=== PATIENT | female | born 1985 | race Caucasian/White ===

== ENCOUNTER 2018-11-22 10:12 | Emergency (ER) | payer SELFPAY ==
[~2018-11-22] VITALS: Ht 162.6 cm; Wt 59.0 kg
[2018-11-22 10:21] VITALS: BP 178/108
[2018-11-22] MEDS ORDERED: IBUPROFEN 600 MG TAB PO ONE (10:30)
[2018-11-22] MEDS ORDERED: ACETAMINOPHEN 500 MG TAB PO ONE (10:30)
== END 2018-11-22 11:28 | disposition left against medical advice (07) ==
LOC: ER 10:12
DX: R50.9 Fever, unspecified (principal); R30.0 Dysuria; Z53.21 Procedure and treatment not carried out due to patient leaving prior to being seen by health care provider